=== PATIENT | female | born 1930 | race Asian ===

== ENCOUNTER 2019-04-01 16:34 | Inpatient (IN) | payer BC ==
[~2019-04-01] VITALS: Ht 154.9 cm; Wt 74.2 kg
[~2019-04-01 16:34] MED LIST: AMLO-150 PO; AMLO10TA8 PO; FURO40TA6 PO; LISI2.5T PO; OXYC5CAP2 PO; OXYC5TAB3 PO; PRED20TA PO
--- NOTE | 2019-04-01 16:40 | NUR ---
BIB EMS FOR [facility] AND UNABLE TO GET UP ON WEDNESDAY. PER EMS PT WAS CRAWLING AND WAS ABLE TO GET TO PHONE TODAY. PT IN [place] NOW FOR BUGS. PER EMS PT WAS IN AFIV RVR, WAS GIVEN 250 NS AND RATE DECREASED TO 110-120.
--- NOTE | 2019-04-01 17:07 | NUR ---
PT NOW IN ROOM FROM [facility] [place]. NO BITES OR BUGS WITNESSED. PT STATES SHE FELL IN THE ELEVATOR AND WAS HELPED ON WEDNESDAY. ON WEDNESDAY PT STATES SHE WENT TO THE BATHROOM AND WAS UNABLE TO GET UP OFF THE TOIILET AND HAD TO FALL TO THE GROUND TO CRAWL. WAS ABLE TO CALL FOR HELP TODAY. DENIES TRAUMA OR LOC. NOTICABLE ABRASIONS TO ELBOWS AND KNEES.
[2019-04-01] MEDS ORDERED: SODIUM CHLORIDE 0.9% 1,000ML IVBOLUS ONE (18:00)
[2019-04-01 18:22] LABS: BASOPHILS # (AUTO) 0.01 x10^3/uL (0-0.1); BASOPHILS % (AUTO) 0 % (0-1); EOSINOPHILS # (AUTO) 0.16 x10^3/uL (0-0.4); EOSINOPHILS % (AUTO) 1 % (1-7); LYMPHOCYTES # (AUTO) 0.82 x10^3/uL (1-3.4); LYMPHOCYTES % (AUTO) 5 % (22-44); MD NO; MEAN CORPUSCULAR HEMOGLOBIN 31.4 pg (27.0-34.8); MEAN CORPUSCULAR HGB CONC 32.7 g/dL (32.4-35.8); MEAN CORPUSCULAR VOLUME 96.1 fL (80-100); MEAN PLATELET VOLUME 9.3 fL (7.4-10.4); MONOCYTES # (AUTO) 1.12 x10^3/uL (0.2-0.8); MONOCYTES % (AUTO) 7 % (2-9); NEUTROPHILS # (AUTO) 12.97 x10^3/uL (1.8-6.8); NEUTROPHILS % (AUTO) 86 % (42-75); PLATELET COUNT 363 x10^3/uL (130-400); RED BLOOD COUNT 4.69 x10^6/uL (3.82-5.3); RED CELL DISTRIBUTION WIDTH 14.1 % (9.6-15.2)
[2019-04-01 18:30] LABS: INTERNATIONAL NORMALIZED RATIO 1.04 (0.93-1.1); PROTHROMBIN TIME 10.9 Seconds (9.6-11.5)
[2019-04-01] MEDS ORDERED: SODIUM CHLORIDE FLUSH 10ML SYR IVF ONE (18:30)
[2019-04-01 18:31] LABS: ALBUMIN 2.8 g/dL (3.4-5.0); ANION GAP 9 mmol/L (5-15); CALCIUM 9.2 mg/dL (8.5-10.1); CHLORIDE 121 mmol/L (98-107)
[2019-04-01 18:36] LABS: CREATINE KINASE, TOTAL 507 U/L (26-192); CREATININE 1.37 mg/dL (0.55-1.02)
[2019-04-01 18:37] LABS: CULTURE INDICATED? YES; MICROSCOPIC INDICATED
--- NOTE | 2019-04-01 18:49 | NUR ---
PT TO IMAGING. UA COLLECTED. FLUIDS INFUSING.
--- NOTE | 2019-04-01 19:36 | NUR ---
PT SLEEPING. VS STABLE. HEATER UNDER BLANKETS FOR COMFORT. NO NEEDS AT THIS TIME. SHWETA CALLED, OK TO GIVE INFO. UPDATED ON PT PROGRESS.
--- NOTE | 2019-04-01 19:55 | NUR ---
[facility] JEAN KHAN AT BEDSIDE DISCUSSING POC. PT ANSWERING ALL QUESTIONS. AGREES TO ADMISSION.
--- NOTE | 2019-04-01 20:09 | NUR ---
PER VANNESA KHAN, START .45% NS @ 75 ML, STRICT I&O. OK TO HAVE FREE WATER. RN ASSISTED PT TO BED ZAM[place]A TO VOID. NEW SHEET AND PAD, REPOSITIONED W PILLOW. NO FURTHER NEEDS AT THIS TIME. TOTAL INTAKE 400 ML NS
[2019-04-01] MEDS ORDERED: TRAZODONE 50MG TABLET PO PRN (20:30)
[2019-04-01] MEDS ORDERED: DOCUSATE 100 MG CAPSULE PO PRN (20:30)
[2019-04-01] MEDS ORDERED: SODIUM CHLORIDE 0.45% 1,000 ML IV SCH (20:30)
[2019-04-01] MEDS ORDERED: ACETAMINOPHEN 325 MG TABLET PO PRN (20:30)
[2019-04-01] MEDS ORDERED: SODIUM CHLORIDE FLUSH 10ML SYR IVF PRN (20:30)
[2019-04-01] MEDS ORDERED: ONDANSETRON ODT 4 MG PO PRN (20:30)
--- NOTE | 2019-04-01 20:57 | NUR ---
ATTEMPT REPORT 2X
--- NOTE | 2019-04-01 20:59 | NUR ---
([facility])
--- NOTE | 2019-04-01 21:07 | NUR ---
REPORT TO ANUSHA
[2019-04-01] MEDS: HEPARIN 5,000 UNITS/ML, 1ML SQ SCH (22:06)
[2019-04-02 01:26] VITALS: BP_SYST 149; BP_SYST 168; BP_DIAS 69; BP_DIAS 74
[2019-04-02 01:30] LABS: ANION GAP 7 mmol/L (5-15); CALCIUM 8.6 mg/dL (8.5-10.1); CHLORIDE 120 mmol/L (98-107); CREATININE 1.52 mg/dL (0.55-1.02)
[2019-04-02] MEDS: HEPARIN 5,000 UNITS/ML, 1ML SQ SCH ×3 (05:07→22:24)
[2019-04-02 06:18] LABS: BASOPHILS # (AUTO) 0.03 x10^3/uL (0-0.1); BASOPHILS % (AUTO) 0 % (0-1); EOSINOPHILS # (AUTO) 0.16 x10^3/uL (0-0.4); EOSINOPHILS % (AUTO) 2 % (1-7); LYMPHOCYTES # (AUTO) 1.09 x10^3/uL (1-3.4); LYMPHOCYTES % (AUTO) 11 % (22-44); MD NO; MEAN CORPUSCULAR HEMOGLOBIN 30.9 pg (27.0-34.8); MEAN CORPUSCULAR HGB CONC 31.7 g/dL (32.4-35.8); MEAN CORPUSCULAR VOLUME 97.6 fL (80-100); MEAN PLATELET VOLUME 9.3 fL (7.4-10.4); MONOCYTES # (AUTO) 0.75 x10^3/uL (0.2-0.8); MONOCYTES % (AUTO) 8 % (2-9); NEUTROPHILS # (AUTO) 7.87 x10^3/uL (1.8-6.8); NEUTROPHILS % (AUTO) 80 % (42-75); PLATELET COUNT 306 x10^3/uL (130-400); RED CELL DISTRIBUTION WIDTH 14.6 % (9.6-15.2)
[2019-04-02 06:32] LABS: ANION GAP 9 mmol/L (5-15); CALCIUM 8.8 mg/dL (8.5-10.1); CHLORIDE 120 mmol/L (98-107); CREATININE 1.51 mg/dL (0.55-1.02)
[2019-04-02 06:35] VITALS: BP 173/62
[2019-04-02 06:41] LABS: FREE T4 (FREE THYROXINE) 1.39 ng/dL (0.76-1.46)
[2019-04-02] MEDS: hydrALAzine 20 MG/ML, 1ML IVPush PRN (07:54)
[2019-04-02] MEDS: GABAPENTIN 100 MG CAPSULE PO SCH ×3 (09:51→20:13)
[2019-04-02] MEDS ORDERED: ACETAMINOPHEN 325 MG TABLET PO PRN (10:00)
[2019-04-02 11:10] LABS: ANION GAP 9 mmol/L (5-15); CALCIUM 8.4 mg/dL (8.5-10.1); CHLORIDE 116 mmol/L (98-107); CREATININE 1.45 mg/dL (0.55-1.02)
[2019-04-02 11:13] LABS: CREATINE KINASE, TOTAL 220 U/L (26-192)
[2019-04-02 12:43] VITALS: BP 125/54
[2019-04-02] MEDS: ACETAMINOPHEN 325 MG TABLET PO SCH (18:00)
[2019-04-02 18:25] VITALS: BP 103/61
[2019-04-02] MEDS ORDERED: CEFTRIAXONE PMX 2GM/50ML 50 ML IV SCH (21:30)
[2019-04-03 00:14] VITALS: BP 114/66
[2019-04-03] MEDS: SODIUM CHLORIDE 0.45% 1,000 ML IV SCH ×2 (03:32→14:35)
[2019-04-03] MEDS: ACETAMINOPHEN 325 MG TABLET PO SCH ×4 (06:00→17:39)
[2019-04-03] MEDS: HEPARIN 5,000 UNITS/ML, 1ML SQ SCH ×3 (06:01→22:30)
[2019-04-03 06:40] LABS: ANION GAP 7 mmol/L (5-15); CALCIUM 8.4 mg/dL (8.5-10.1); CHLORIDE 117 mmol/L (98-107)
[2019-04-03 06:45] LABS: CREATINE KINASE, TOTAL 103 U/L (26-192); CREATININE 1.62 mg/dL (0.55-1.02)
[2019-04-03 07:17] VITALS: BP 147/63
[2019-04-03] MEDS: GABAPENTIN 100 MG CAPSULE PO SCH ×3 (08:14→21:20)
[2019-04-03] MEDS: CEFDINIR 300 MG CAPSULE PO SCH (08:16)
[2019-04-03] MEDS ORDERED: SIMETHICONE 80 MG CHEW TAB PO PRN (12:30)
[2019-04-03 12:39] VITALS: BP 169/79
[2019-04-03 13:24] LABS: CLOSTRIDIUM DIFFICILE ANTIGEN NEGATIVE; CLOSTRIDIUM DIFFICILE TOXIN NEGATIVE (Negative)
[2019-04-03 14:57] VITALS: BP 184/68
[2019-04-03] MEDS: LACTOBACILLUS CHEW TABLET PO SCH ×2 (15:00→21:20)
[2019-04-03] MEDS: DIPHENOXYLATE/ATROPINE TABLET PO PRN (15:00)
[2019-04-03] MEDS: hydrALAzine 20 MG/ML, 1ML IVPush PRN (15:07)
[2019-04-03 16:42] VITALS: BP 164/61
[2019-04-03 18:46] VITALS: BP 148/65
[2019-04-04 01:05] VITALS: BP 138/65
[2019-04-04 05:31] LABS: ANION GAP 7 mmol/L (5-15); CALCIUM 8.6 mg/dL (8.5-10.1); CHLORIDE 115 mmol/L (98-107); CREATININE 1.44 mg/dL (0.55-1.02)
[2019-04-04] MEDS: SODIUM CHLORIDE 0.45% 1,000 ML IV SCH ×2 (05:49→23:06)
[2019-04-04] MEDS: ACETAMINOPHEN 325 MG TABLET PO SCH ×5 (05:49→23:05)
[2019-04-04] MEDS: HEPARIN 5,000 UNITS/ML, 1ML SQ SCH ×3 (05:49→23:03)
[2019-04-04 07:12] VITALS: BP 178/72
[2019-04-04] MEDS: CEFDINIR 300 MG CAPSULE PO SCH (08:36)
[2019-04-04] MEDS: GABAPENTIN 100 MG CAPSULE PO SCH ×3 (08:36→21:03)
[2019-04-04] MEDS: LACTOBACILLUS CHEW TABLET PO SCH ×3 (08:36→21:03)
[2019-04-04] MEDS: DIPHENOXYLATE/ATROPINE TABLET PO PRN (11:30)
[2019-04-04 12:44] VITALS: BP 174/69
[2019-04-04] MEDS: hydrALAzine 20 MG/ML, 1ML IVPush PRN (15:23)
[2019-04-04 17:09] VITALS: BP 156/68
[2019-04-04 18:30] VITALS: BP 152/64
[2019-04-04 21:02] VITALS: BP 137/64
[2019-04-05] VITALS (7 sets, daily range): BP systolic 126–172; BP diastolic 60–78
[2019-04-05 05:08] LABS: ANION GAP 6 mmol/L (5-15); CALCIUM 8.3 mg/dL (8.5-10.1); CHLORIDE 114 mmol/L (98-107)
[2019-04-05 05:09] LABS: CREATININE 1.49 mg/dL (0.55-1.02)
[2019-04-05] MEDS: HEPARIN 5,000 UNITS/ML, 1ML SQ SCH ×3 (06:12→23:40)
[2019-04-05] MEDS: ACETAMINOPHEN 325 MG TABLET PO SCH ×4 (06:13→23:40)
[2019-04-05] MEDS: DIPHENOXYLATE/ATROPINE TABLET PO PRN (06:21)
[2019-04-05] MEDS ORDERED: CEFDINIR 300 MG CAPSULE PO SCH (09:00)
[2019-04-05] MEDS: LACTOBACILLUS CHEW TABLET PO SCH ×3 (09:23→21:11)
[2019-04-05] MEDS: GABAPENTIN 100 MG CAPSULE PO SCH ×3 (09:23→21:12)
[2019-04-05] MEDS: SODIUM CHLORIDE 0.45% 1,000 ML IV SCH (15:37)
[2019-04-06] VITALS (8 sets, daily range): BP systolic 123–195; BP diastolic 54–75
[2019-04-06] MEDS: ACETAMINOPHEN 325 MG TABLET PO SCH ×4 (05:51→23:29)
[2019-04-06] MEDS: LACTOBACILLUS CHEW TABLET PO SCH ×3 (08:55→20:09)
[2019-04-06] MEDS: HEPARIN 5,000 UNITS/ML, 1ML SQ SCH ×3 (08:55→23:31)
[2019-04-06] MEDS: GABAPENTIN 100 MG CAPSULE PO SCH ×3 (08:56→20:09)
[2019-04-06] MEDS: CAPSAICIN CRM 0.075%, 60GM TP SCH ×2 (10:16→20:09)
[2019-04-06] MEDS ORDERED: DIPHENOXYLATE/ATROPINE TABLET PO PRN (12:30)
[2019-04-06] MEDS: ISOSORBIDE DINITRATE 10 MG TABLET PO SCH ×3 (13:12→20:09)
[2019-04-06] MEDS: hydrALAzine 20 MG/ML, 1ML IVPush PRN (13:12)
[2019-04-06] MEDS ORDERED: SODIUM CHLORIDE 0.45% 1,000 ML IV SCH (20:30)
[2019-04-07 01:15] VITALS: BP 160/68
[2019-04-07] MEDS: ACETAMINOPHEN 325 MG TABLET PO SCH ×4 (05:04→23:37)
[2019-04-07 05:43] LABS: ANION GAP 6 mmol/L (5-15); CALCIUM 8.4 mg/dL (8.5-10.1); CHLORIDE 116 mmol/L (98-107); CREATININE 1.58 mg/dL (0.55-1.02)
[2019-04-07 06:39] VITALS: BP 143/61
[2019-04-07] MEDS ORDERED: DIPHENOXYLATE/ATROPINE TABLET PO PRN (08:00)
[2019-04-07] MEDS: HEPARIN 5,000 UNITS/ML, 1ML SQ SCH ×3 (08:55→23:37)
[2019-04-07] MEDS: LACTOBACILLUS CHEW TABLET PO SCH ×3 (08:55→21:31)
[2019-04-07] MEDS: ISOSORBIDE DINITRATE 10 MG TABLET PO SCH ×3 (08:55→21:31)
[2019-04-07] MEDS: GABAPENTIN 100 MG CAPSULE PO SCH ×3 (08:55→21:31)
[2019-04-07] MEDS: CAPSAICIN CRM 0.075%, 60GM TP SCH ×2 (10:52→21:55)
[2019-04-07 12:30] VITALS: BP 172/62
[2019-04-07 18:44] VITALS: BP 156/69
[2019-04-08 00:21] VITALS: BP 147/59
[2019-04-08] MEDS: ACETAMINOPHEN 325 MG TABLET PO SCH ×3 (05:33→18:06)
[2019-04-08] MEDS: GABAPENTIN 100 MG CAPSULE PO SCH ×3 (08:20→21:25)
[2019-04-08] MEDS: HEPARIN 5,000 UNITS/ML, 1ML SQ SCH ×2 (08:20→16:52)
[2019-04-08] MEDS: ISOSORBIDE DINITRATE 10 MG TABLET PO SCH ×3 (08:21→21:26)
[2019-04-08] MEDS: LACTOBACILLUS CHEW TABLET PO SCH ×3 (08:21→21:25)
[2019-04-08] MEDS: CAPSAICIN CRM 0.075%, 60GM TP SCH ×2 (08:22→21:25)
[2019-04-08 08:31] VITALS: BP 157/68
[2019-04-08 12:32] VITALS: BP 176/74
[2019-04-08] MEDS ORDERED: AMLODIPINE 5 MG TABLET PO SCH (17:30)
[2019-04-08 18:48] VITALS: BP 153/72
[2019-04-09] MEDS: ACETAMINOPHEN 325 MG TABLET PO SCH ×4 (00:05→20:22)
[2019-04-09] MEDS: HEPARIN 5,000 UNITS/ML, 1ML SQ SCH ×3 (00:06→16:59)
[2019-04-09 00:40] VITALS: BP 168/66
[2019-04-09 07:41] VITALS: BP 183/77
[2019-04-09] MEDS: LACTOBACILLUS CHEW TABLET PO SCH ×3 (07:54→20:21)
[2019-04-09] MEDS: GABAPENTIN 100 MG CAPSULE PO SCH ×3 (07:55→20:22)
[2019-04-09] MEDS: ISOSORBIDE DINITRATE 10 MG TABLET PO SCH ×3 (07:55→20:22)
[2019-04-09] MEDS: AMLODIPINE 10 MG TAB PO SCH (07:56)
[2019-04-09] MEDS: CAPSAICIN CRM 0.075%, 60GM TP SCH ×2 (10:32→20:22)
[2019-04-09 13:00] VITALS: BP 148/69
[2019-04-09 19:27] VITALS: BP 146/57
[2019-04-10 00:25] VITALS: BP 151/60
[2019-04-10] MEDS: HEPARIN 5,000 UNITS/ML, 1ML SQ SCH ×2 (01:51→08:29)
[2019-04-10] MEDS: ACETAMINOPHEN 325 MG TABLET PO SCH ×2 (01:52→08:30)
[2019-04-10 06:51] VITALS: BP 167/73
[2019-04-10] MEDS ORDERED: ACID1TAB7 PO (08:11)
[2019-04-10] MEDS ORDERED: TRAM50TA2 PO (08:11)
[2019-04-10] MEDS ORDERED: ISOS10TA2 PO (08:11)
[2019-04-10] MEDS ORDERED: CAPS57CR2 TP (08:11)
[2019-04-10] MEDS ORDERED: AMLO-150 PO (08:11)
[2019-04-10] MEDS ORDERED: GABA-826 PO (08:11)
[2019-04-10] MEDS ORDERED: HYDR-3342 PO (08:11)
[2019-04-10] MEDS ORDERED: OXYB5TAB10 PO (08:11)
[2019-04-10] MEDS: AMLODIPINE 10 MG TAB PO SCH (08:28)
[2019-04-10] MEDS: LACTOBACILLUS CHEW TABLET PO SCH (08:29)
[2019-04-10] MEDS: GABAPENTIN 100 MG CAPSULE PO SCH (08:29)
[2019-04-10] MEDS: ISOSORBIDE DINITRATE 10 MG TABLET PO SCH (08:30)
[2019-04-10] MEDS: CAPSAICIN CRM 0.075%, 60GM TP SCH (09:00)
[2019-04-10] MEDS ORDERED: OXYBUTYNIN CHLORIDE 5 MG TABLET PO SCH (09:00)
[2019-04-10] MEDS ORDERED: FLU VACC QS2019-20 36MOS UP/PF 0.5 ML IM-VACC ONE (10:00)
== END 2019-04-10 12:20 | DRG 872 ==
LOC: ED 20:41 → EDIP 21:39 → 4WST 21:45 → 3N 04-07 16:12
PROVIDERS: ADMIT Family Medicine; ATTEND Family Medicine
DX: A41.9 Sepsis, unspecified organism (principal); E87.0 Hyperosmolality and hypernatremia; M62.82 Rhabdomyolysis; N17.9 Acute kidney failure, unspecified; N39.0 Urinary tract infection, site not specified; E11.22 Type 2 diabetes mellitus with diabetic chronic kidney disease; M25.40 Effusion, unspecified joint; R00.0 Tachycardia, unspecified; E86.0 Dehydration; G89.11 Acute pain due to trauma; I12.9 Hypertensive chronic kidney disease with stage 1 through stage 4 chronic kidney disease, or unspecified chronic kidney disease; I48.91 Unspecified atrial fibrillation; M16.0 Bilateral primary osteoarthritis of hip; N18.3 Chronic kidney disease, stage 3 (moderate); S83.013A Lateral subluxation of unspecified patella, initial encounter; W18.39XA Other fall on same level, initial encounter; R29.6 Repeated falls; Y92.009 Unspecified place in unspecified non-institutional (private) residence as the place of occurrence of the external cause; Y93.89 Activity, other specified; Y92.098 Other place in other non-institutional residence as the place of occurrence of the external cause; Y99.8 Other external cause status; Z23 Encounter for immunization
CPT/HCPCS: 36415; 71045; 72192; 80048; 81001; 82040; 82550; 84439; 84443; 85025; 85610; 85730; 87077; 87086; 87186; 87324; 90686; 93005; 96360; 96361; G0378; J0696; J1644; J0360; J7030